=== PATIENT | male | born 1970 | race Caucasian/White ===

== ENCOUNTER → 2018-07-20 | Outpatient (CLI) | payer BC ==
--- NOTE | 2018-07-20 14:02 | RAD ---
Indication:LOTS OF ABDOMINAL GAS TECHNIQUE: Grayscale, color Doppler and spectral waveform is of the abdomen obtained. COMPARISON:None FINDINGS:Pancreas is suboptimally visualized due to overlying bowel gas. No aortic aneurysm. IVC suboptimally visualized. No pericholecystic fluid or gallbladder wall thickening. Gallstone noted. Main portal vein is patent with hepatopedal flow. Liver measures 15 cm in longest dimension with diffusely increased echogenicity. Right kidney measures 10.7 cm in length without hydronephrosis. Left kidney measures 10.7 cm in length without hydronephrosis. Spleen measures 10 cm in length and is normal in size. CBD not visualized. IMPRESSION: 1. Questionable gallstone. No sonographic evidence of acute cholecystitis. 2. Hepatic steatosis. Electronically signed by: Isaac Muñoz DO (07/20/2018 1:59 PM) [id number]
== END | disposition home or self-care (01) ==
LOC: US 12:29
PROVIDERS: ATTEND Specialist
DX: K76.0 Fatty (change of) liver, not elsewhere classified (principal)
CPT/HCPCS: 76700